=== PATIENT | male | born 1990 | race Caucasian/White ===

== ENCOUNTER 2021-11-18 18:47 | Emergency (ER) | payer SELFPAY ==
[~2021-11-18] VITALS: Ht 185.4 cm; Wt 90.3 kg
[2021-11-18 19:30] VITALS: BP 127/80
--- NOTE | 2021-11-18 19:54 | NUR ---
Patient does not wish to proceed with medical care recommended by Ab Clancy. Patient given information related to possible complications, up to and including , which could occur as a result of leaving the hospital at this time. Patient verbalizes understanding of risks involved due to leaving against medical advice. Patient has signed AMA form.
--- NOTE | 2021-11-18 19:54 | NUR ---
Patient does not wish to proceed with medical care recommended by Dr. GONSALEZ. Patient given information related to possible complications, up to and including , which could occur as a result of leaving the hospital at this time. Patient verbalizes understanding of risks involved due to leaving against medical advice. Patient has signed AMA form.
== END 2021-11-18 20:05 | disposition home or self-care (01) ==
LOC: ER 19:08
DX: S09.90XA Unspecified injury of head, initial encounter (principal); Z88.0 Allergy status to penicillin; Z60.2 Problems related to living alone; V49.49XA Driver injured in collision with other motor vehicles in traffic accident, initial encounter; Y93.89 Activity, other specified; Y92.413 State road as the place of occurrence of the external cause; Y99.8 Other external cause status